=== PATIENT | female | born 1970 | race American Indian/Alaskan Native ===

== ENCOUNTER 2022-01-04 14:25 | Emergency (ER) | payer BC ==
[~2022-01-04] VITALS: Ht 154.9 cm; Wt 90.0 kg
[2022-01-04 14:32] VITALS: BP 153/80
== END 2022-01-04 16:12 | disposition home or self-care (01) ==
LOC: ER 14:25
DX: H11.31 Conjunctival hemorrhage, right eye (principal); G43.909 Migraine, unspecified, not intractable, without status migrainosus; Z87.81 Personal history of (healed) traumatic fracture; Z88.2 Allergy status to sulfonamides; Z88.5 Allergy status to narcotic agent; Z79.899 Other long term (current) drug therapy
CPT/HCPCS: 99281

== ENCOUNTER 2022-10-25 07:26 | Outpatient (CLI) | payer BC ==
[2022-10-25] VITALS (17 sets, daily range): BP systolic 100–136; BP diastolic 62–96
== END 2022-10-25 23:59 | disposition home or self-care (01) ==
LOC: CARD DIAG 07:26
PROVIDERS: ATTEND Physician Assistant
DX: R55 Syncope and collapse (principal); R00.2 Palpitations
CPT/HCPCS: 93660

== ENCOUNTER 2023-07-26 14:33 | Emergency (ER) | payer BC ==
[~2023-07-26] VITALS: Ht 154.9 cm; Wt 93.8 kg
[2023-07-26] MEDS ORDERED: LISI10TA27 PO (17:20)
[2023-07-26 17:50] VITALS: BP 150/102; PULSE 66; RESP 16; TEMP 98; O2SAT 96
== END 2023-07-26 17:52 | disposition home or self-care (01) ==
LOC: ER 14:33
DX: I10 Essential (primary) hypertension (principal); G43.909 Migraine, unspecified, not intractable, without status migrainosus; E78.00 Pure hypercholesterolemia, unspecified; Z88.2 Allergy status to sulfonamides; Z88.5 Allergy status to narcotic agent; Z79.899 Other long term (current) drug therapy
CPT/HCPCS: 70450; 99284

== ENCOUNTER 2023-10-12 06:57 | Emergency (ER) | payer BC ==
[~2023-10-12] VITALS: Ht 154.9 cm; Wt 94.0 kg
[~2023-10-12 06:57] MED LIST: LISI10TA27 PO
[2023-10-12 07:10] VITALS: TEMP 97.7
[2023-10-12] MEDS ORDERED: iohexol 350MG/ML 100ml bottle IV ONE (07:51)
[2023-10-12] MEDS: aspirin 325mg tablet PO ONE (08:59)
[2023-10-12] MEDS: nitroGLYCERIN 1gm ointment UD TP ONE (08:59)
[2023-10-12 09:11] LABS: BASOPHILS % (AUTO) 0.7 % (0-1); EOSINOPHILS # (AUTO) 0.1 X10'3 (0-0.9); EOSINOPHILS % (AUTO) 1.7 % (0-6); HEMATOCRIT 45.3 % (35.0-45.0); HEMOGLOBIN 15.3 g/dl (12.0-16.0); LYMPHOCYTES # (AUTO) 1.4 X10'3 (1.1-4.8); LYMPHOCYTES % (AUTO) 31.1 % (21-51); MEAN CORPUSCULAR HEMOGLOBIN 31.3 PG (27.0-31.0); MEAN CORPUSCULAR HGB CONC 33.8 g/dL (33.0-36.5); MEAN CORPUSCULAR VOLUME 92.6 FL (78-98); MEAN PLATELET VOLUME 9.8 FL (7.4-10.4); MONOCYTES # (AUTO) 0.4 X10'3 (0-0.9); MONOCYTES % (AUTO) 7.8 % (2-12); NEUTROPHILS # (AUTO) 2.7 X10'3 (1.8-7.7); NEUTROPHILS % (AUTO) 58.7 % (42-75); PLATELET COUNT 192 X10'3 (140-440); RED BLOOD COUNT 4.89 X10'6 (4.20-5.60); RED CELL DISTRIBUTION WIDTH 13.7 % (11.5-14.5); WHITE BLOOD COUNT 4.6 X10'3 (4.5-11.0)
[2023-10-12 09:27] LABS: ALANINE AMINOTRANSFERASE 45 U/L (12-78); ALBUMIN 3.9 G/DL (3.4-5.0); ALBUMIN/GLOBULIN RATIO 1.1 (1.1-1.5); ALKALINE PHOSPHATASE 86 IU/L (46-116); ANION GAP 5 (8-16); ASPARTATE AMINO TRANSFERASE 31 U/L (10-37); BILIRUBIN,TOTAL 0.7 MG/DL (0.1-1.0); BLOOD UREA NITROGEN 15 MG/DL (7-18); CALCIUM 9.2 MG/DL (8.5-10.1); CHLORIDE 107 MMOL/L (99-107); CREATININE 0.88 MG/DL (0.40-0.90); GLUCOSE 88 MG/DL (70-104); SODIUM 138 MMOL/L (135-145); TOTAL CARBON DIOXIDE 26.5 MMOL/L (24-32); TOTAL PROTEIN 7.5 G/DL (6.4-8.2); eCRCL 55 ML/MIN; eGFR 67 ML/MIN
[2023-10-12 09:39] LABS: FREE T4 (FREE THYROXINE) 0.92 NG/DL (0.73-1.40); MAGNESIUM 2.1 MG/DL (1.5-2.4); PRO BRAIN NATRIURETIC PEPTIDE 120 PG/ML (0-125)
[2023-10-12 12:23] VITALS: BP 132/89; PULSE 88; RESP 16; O2SAT 98
== END 2023-10-12 12:30 | disposition home or self-care (01) ==
LOC: ER 06:58
DX: R07.89 Other chest pain (principal); G43.909 Migraine, unspecified, not intractable, without status migrainosus; E78.00 Pure hypercholesterolemia, unspecified; I10 Essential (primary) hypertension; Z88.2 Allergy status to sulfonamides; Z88.5 Allergy status to narcotic agent; Z79.899 Other long term (current) drug therapy
CPT/HCPCS: 36415; 71045; 71275; 80053; 83735; 83880; 84439; 84443; 84484; 85025; 93005; 99285; J3490; Q9967

== ENCOUNTER 2024-05-29 11:51 | Emergency (ER) | payer BC ==
[~2024-05-29] VITALS: Ht 154.9 cm; Wt 95.5 kg
[2024-05-29 11:54] VITALS: BP 138/80; PULSE 75; TEMP 98; O2SAT 99
[2024-05-29 13:39] LABS: BASOPHILS % (AUTO) 0.6 % (0-1); EOSINOPHILS % (AUTO) 0.8 % (0-6); HEMATOCRIT 42.6 % (35.0-45.0); HEMOGLOBIN 14.6 g/dl (12.0-16.0); LYMPHOCYTES # (AUTO) 1.4 X10'3 (1.1-4.8); LYMPHOCYTES % (AUTO) 26.9 % (21-51); MEAN CORPUSCULAR HGB CONC 34.3 g/dL (33.0-36.5); MEAN CORPUSCULAR VOLUME 93.3 FL (78-98); MEAN PLATELET VOLUME 8.8 FL (7.4-10.4); MONOCYTES # (AUTO) 0.4 X10'3 (0-0.9); MONOCYTES % (AUTO) 7.9 % (2-12); NEUTROPHILS # (AUTO) 3.4 X10'3 (1.8-7.7); NEUTROPHILS % (AUTO) 63.8 % (42-75); PLATELET COUNT 193 X10'3 (140-440); RED BLOOD COUNT 4.56 X10'6 (4.20-5.60); RED CELL DISTRIBUTION WIDTH 13.2 % (11.5-14.5); WHITE BLOOD COUNT 5.4 X10'3 (4.5-11.0)
[2024-05-29 13:53] LABS: ALANINE AMINOTRANSFERASE 61 U/L (12-78); ALBUMIN 3.6 G/DL (3.4-5.0); ALKALINE PHOSPHATASE 129 IU/L (46-116); ANION GAP 9 (8-16); ASPARTATE AMINO TRANSFERASE 29 U/L (10-37); BILIRUBIN,TOTAL 0.5 MG/DL (0.1-1.0); BLOOD UREA NITROGEN 22 MG/DL (7-18); BUN/CREATININE RATIO 18.3 (10.0-20.0); CALCIUM 9.2 MG/DL (8.5-10.1); CHLORIDE 106 MMOL/L (99-107); GLUCOSE 94 MG/DL (70-104); POTASSIUM 4.2 MMOL/L (3.5-5.1); SODIUM 140 MMOL/L (135-145); TOTAL CARBON DIOXIDE 25.1 MMOL/L (24-32); TOTAL PROTEIN 7.1 G/DL (6.4-8.2); eCRCL 40 ML/MIN; eGFR 47 ML/MIN
[2024-05-29 13:55] VITALS: RESP 16
[2024-05-29] MEDS: ketorolac trometh 15mg/ml vial 15 MG/ML ML IM ONE (13:55)
[2024-05-29 13:57] LABS: BILIRUBIN,URINE NEGATIVE (Neg); CLARITY,URINE CLEAR (Clear); COLOR,URINE YELLOW (Yellow); GLUCOSE, URINE NEGATIVE (Neg); KETONES,URINE NEGATIVE (Neg); LEUKOCYTE ESTERASE ,URINE TRACE (Neg); NITRITES, URINE NEGATIVE (Neg); OCCULT BLOOD,URINE NEGATIVE (Neg); PROTEIN,URINE NEGATIVE (Neg); UROBILINOGEN,URINE 0.2 E.U/dL (0.2-1.0)
[2024-05-29 14:02] LABS: UA COLLECTION TYPE CLN CATCH MIDSTREAM
[2024-05-29 14:04] LABS: RBC,URINE NONE SEEN /HPF (0-2)
[2024-05-29 14:05] LABS: AMORPHOUS PHOSPHATES 1+
[2024-05-29 14:06] LABS: BACTERIA,URINE NONE SEEN /HPF (Neg); SQUAMOUS EPITHELIAL CELL,UR FEW /LPF (FEW)
[2024-05-29] MEDS ORDERED: FLO0.4C PO (15:16)
[2024-05-29] MEDS ORDERED: TRAM50TA2 PO (15:16)
[2024-05-29] MEDS ORDERED: CEPH-585 PO (15:16)
[2024-05-29] MEDS ORDERED: ONDA-243 PO (15:16)
[2024-05-29] MEDS: cephalexin 250mg capsule PO ONE (16:06)
[2024-05-29] MEDS ORDERED: tamsulosin 0.4mg capsule PO SCH ×2 (16:25→21:00)
[2024-05-29] MEDS ORDERED: tamsulosin 0.4mg capsule PO ONE (16:25)
== END 2024-05-29 16:39 | disposition home or self-care (01) ==
LOC: ER 11:54
DX: N23 Unspecified renal colic (principal); E78.00 Pure hypercholesterolemia, unspecified; G43.909 Migraine, unspecified, not intractable, without status migrainosus; I10 Essential (primary) hypertension; Z87.442 Personal history of urinary calculi; Z86.73 Personal history of transient ischemic attack (TIA), and cerebral infarction without residual deficits; Z88.2 Allergy status to sulfonamides; Z88.5 Allergy status to narcotic agent; Z98.890 Other specified postprocedural states
CPT/HCPCS: 36415; 80053; 81001; 84145; 85025; 87088; 96372; 99283; J1885; J7030